=== PATIENT | female | born 1975 | race Caucasian/White ===

== ENCOUNTER → 2019-10-08 13:30 | Outpatient (CLI) | payer BC, SELFPAY ==
--- NOTE | ~2019-10-08 | MM_ITS ---
EXAMINATION: MM screening alia BI w jeffery HISTORY: Screening mammogram TECHNIQUE: Craniocaudal and mediolateral oblique 3-D tomosynthesis images were obtained and synthetic 2-D images were generated. CAD analysis was submitted and interpreted. COMPARISON: 09/29/2018, 09/06/2017, 04/05/2016 bilateral digital screening mammogram examinations BREAST PARENCHYMAL COMPOSITION: The breasts are heterogeneously dense, which may obscure small masses . FINDINGS: There are asymmetries in the left breast. Diagnostic left mammogram is recommended, with ul trasound if required. No suspicious mass, architectural distortion, malignant calcification, skin thickening or retraction or significant new or developing density is noted on the right.. IMPRESSION: 1. Left mammographic asymmetries 2. Diagnostic left mammogram is recommended, with ultrasound if required BI-RADS Category 0: Incomplete: Needs additional imaging evaluation. Reviewed, dictated and finalized at location A.
== END ==
PROVIDERS: PCP Internal Medicine; Visit Provider Obstetrics & Gynecology
DX: Z12.31 Encounter for screening mammogram for malignant neoplasm of breast (principal); R92.8 Other abnormal and inconclusive findings on diagnostic imaging of breast
CPT/HCPCS: 77063; 77067

== ENCOUNTER 2019-10-15 12:42 | Outpatient (CLI) | payer BC, SELFPAY ==
--- NOTE | ~2019-10-15 | MMUS_ITS ---
EXAMINATION: MM diagnostic mammo unilat LT, US breast LT complete HISTORY: Follow-up left breast asymmetries TECHNIQUE: Additional 3-D tomosynthesis images of the left breast were performed and synthetic 2-D im ages were generated. CAD analysis was submitted and interpreted. High resolution left breast ultrasou nd was performed. COMPARISON: 10/08/2019 FINDINGS: MAMMOGRAPHIC FINDINGS: The breasts are heterogenously dense, which may obscure small masses. Left breast asymmetries are les s dense with spot compression and mediolateral views of the left breast. No discrete mass or architec tural distortion is identified. ULTRASOUND: Left breast ultrasound: Normal heterogeneous echotexture without focal solid or cystic mass. IMPRESSION: 1. Probable benign focal asymmetries of the left breast. No sonographic correlate. 2. Recommend 6 month follow-up diagnostic left mammogram recommended BI-RADS category 3, probably benign findings. Reviewed, dictated and finalized at location A. IMPRESSION: 1. Probable benign focal asymmetries of the left breast. No sonographic correla te. 2. Recommend 6 month follow-up diagnostic left mammogram recommended BI-RADS category 3, probably benign findings.
== END 2019-10-15 12:43 | disposition home or self-care (01) ==
LOC: ANHIMG 12:46
PROVIDERS: PCP Internal Medicine; Visit Provider Obstetrics & Gynecology
DX: N64.89 Other specified disorders of breast (principal)
CPT/HCPCS: 76641; 77065

== ENCOUNTER 2020-04-17 11:33 | Outpatient (CLI) | payer BC, SELFPAY ==
--- NOTE | ~2020-04-17 | MM_ITS ---
EXAMINATION: MM diagnostic alia LT w jeffery HISTORY: Six-month follow-up TECHNIQUE: ML, MLO and cc full field and spot 3-D tomosynthesis images of the left breast were perfor med and synthetic 2-D images were generated. Rolled medial and rolled lateral craniocaudal views. CAD analysis was submitted and interpreted. COMPARISON: 10/08/2019 bilateral digital screening mammogram 10/15/2019 diagnostic left digital mammogram and left complete breast ultrasound BREAST PARENCHYMAL COMPOSITION: The breasts are heterogeneously dense, which may obscure small masses . FINDINGS: No interval suspicious mass, architectural distortion, malignant calcification, skin thicke janie or retraction or significant new or developing density of the left breast is evident. IMPRESSION: 1. No mammographic evidence of malignancy 2. Routine mammographic screening is recommended. BI-RADS Category 1: Negative Reviewed, dictated and finalized at location A.
== END 2020-04-17 11:34 | disposition home or self-care (01) ==
PROVIDERS: PCP Internal Medicine; Visit Provider Obstetrics & Gynecology
DX: N64.89 Other specified disorders of breast (principal)
CPT/HCPCS: 77061; 77065; G0279

== ENCOUNTER 2021-04-17 07:40 | Outpatient (CLI) | payer BC, SELFPAY ==
--- NOTE | ~2021-04-17 | MM_ITS ---
EXAMINATION: MM screening alia BI w jeffery HISTORY: Screening mammogram TECHNIQUE: Craniocaudal and mediolateral oblique 3-D tomosynthesis images were obtained and synthetic 2-D images were generated. Bilateral rotated lateral CC views. CAD analysis was submitted and interp reted. COMPARISON: 10/15/2019 diagnostic left mammogram and complete left breast ultrasound 10/08/2019, 09/29/2018, 09/06/2017, 04/05/2016 bilateral digital screening mammogram examinations BREAST PARENCHYMAL COMPOSITION: The breasts are heterogeneously dense, which may obscure small masses . FINDINGS: There is no evidence of suspicious mass, calcification, or architectural distortion to sugg est malignancy in either breast. There has been no suspicious interval change. IMPRESSION: 1. No mammographic evidence of malignancy. 2. Recommend routine screening mammography in one year. BI-RADS Category 1: Negative Reviewed, dictated and finalized at location A.
== END 2021-04-17 07:41 | disposition home or self-care (01) ==
LOC: ANHIMG 07:43
PROVIDERS: PCP Internal Medicine; Visit Provider Obstetrics & Gynecology
DX: Z12.31 Encounter for screening mammogram for malignant neoplasm of breast (principal)
CPT/HCPCS: 77063; 77067

== ENCOUNTER 2022-05-24 12:49 | Outpatient (CLI) | payer BC, SELFPAY ==
--- NOTE | ~2022-05-24 | MM_ITS ---
EXAMINATION: MM screening alia BI w jeffery HISTORY: Screening mammogram TECHNIQUE: Craniocaudal and mediolateral oblique 3-D tomosynthesis images were obtained and synthetic 2-D images were generated. Bilateral rotated lateral CC views. CAD analysis was submitted and interp reted. COMPARISON: 04/17/2021, 04/17/2020 bilateral screening mammogram examinations 10/15/2019 diagnostic left mammogram and complete left breast ultrasound 10/08/2019 bilateral screening mammogram BREAST PARENCHYMAL COMPOSITION: The breasts are heterogeneously dense, which may obscure small masses . FINDINGS: There is no evidence of suspicious mass, calcification, or architectural distortion to sugg est malignancy in either breast. There has been no suspicious interval change. IMPRESSION: 1. No mammographic evidence of malignancy. 2. Recommend routine screening mammography in one year. BI-RADS Category 1: Negative Reviewed, dictated and finalized at location A. REPAIRER
== END 2022-05-24 12:50 | disposition home or self-care (01) ==
PROVIDERS: PCP Internal Medicine; Visit Provider Internal Medicine
DX: Z12.31 Encounter for screening mammogram for malignant neoplasm of breast (principal)
CPT/HCPCS: 77063; 77067

== ENCOUNTER 2022-10-09 10:32 | Outpatient (CLI) | payer BC, SELFPAY ==
--- NOTE | ~2022-10-09 | US_ITS ---
EXAMINATION: US pelvic complete w TV DATE: 10/09/2022 11:00 INDICATION: Abnormal uterine bleeding. Pelvic pain. History of fibroids. Comparison:No prior studies for comparison. TECHNIQUE: Multiple transabdominal and endovaginal sonographic images of the pelvis performed. FINDINGS: The uterus measures 9.7 x 1.3 x 6.6 cm. The endometrial complex measures 0.5 cm. The right ovary is not visualized. Left ovary is unremarkable measuring 3.1 x 1.9 x 2.9 cm There is no free fluid in the pelvis. There are no abnormal masses seen on either side. IMPRESSION: 1. Endometrial thickening measuring 1.5 cm. Reviewed, dictated and finalized at location B.
== END 2022-10-09 10:33 ==
LOC: MICIMG 10:33
PROVIDERS: PCP Nurse Practitioner Family; Visit Provider Registered Nurse School
DX: N93.9 Abnormal uterine and vaginal bleeding, unspecified (principal); R10.2 Pelvic and perineal pain; R93.89 Abnormal findings on diagnostic imaging of other specified body structures
CPT/HCPCS: 76830; 76856

== ENCOUNTER 2023-05-26 11:40 | Outpatient (CLI) | payer BC, SELFPAY ==
--- NOTE | ~2023-05-26 | MM_ITS ---
EXAMINATION: MM screening alia BI w jeffery HISTORY: Screening mammogram TECHNIQUE: Craniocaudal and mediolateral oblique 3-D tomosynthesis images were obtained and synthetic 2-D images were generated. CAD analysis was submitted and interpreted. COMPARISON: 05/24/2022, 04/17/2021 bilateral screening mammogram examinations BREAST PARENCHYMAL COMPOSITION: The breasts are heterogeneously dense, which may obscure small masses . FINDINGS: Stable mild fibroglandular asymmetry. There is no evidence of suspicious mass, calcificatio n, or architectural distortion to suggest malignancy in either breast. There has been no suspicious i nterval change. IMPRESSION: 1. No mammographic evidence of malignancy. 2. Recommend routine screening mammography in one year. BI-RADS Category 2: Benign finding(s). Reviewed, dictated and finalized at location A. INE FEEDER FLOORPERSON
== END 2023-05-26 11:41 | disposition home or self-care (01) ==
LOC: CHSIMG 11:43
PROVIDERS: PCP Nurse Practitioner Family; Visit Provider Nurse Practitioner Family
DX: Z12.31 Encounter for screening mammogram for malignant neoplasm of breast (principal)
CPT/HCPCS: 77063; 77067

== ENCOUNTER 2024-06-01 12:11 | Outpatient (CLI) | payer OTHER, SELFPAY ==
--- NOTE | ~2024-06-01 | MM_ITS ---
EXAMINATION: MM screening alia BI w jeffery HISTORY: Screening TECHNIQUE: Craniocaudal and mediolateral oblique 3-D tomosynthesis images were obtained and synthetic 2-D images were generated. CAD analysis was submitted and interpreted. COMPARISON: No prior mammogram is available for comparison at this institution. BREAST PARENCHYMAL COMPOSITION: Dense: The breasts are heterogeneously dense, which may obscure small masses FINDINGS: There is a new mass in the lower inner quadrant of the right breast posterior third. There are developing nodular asymmetries in the upper inner quadrant of the left breast, middle-posterior d epth. There are no suspicious calcifications or architectural distortion. IMPRESSION: 1. New right breast mass. Developing left breast nodular asymmetries. 2. Additional mammographic views and possible breast ultrasound are recommended. BI-RADS Category 0: Incomplete: Needs additional imaging evaluation. Reviewed, dictated and finalized at location B. FACTURING ENGINEER AUTOMOTIVE IMPRESSION: 1. New right breast mass. Developing left breast nodular asymmetries. 2. Additional mammographic views and possible breast ultrasound are recommended . BI-RADS Category 0: Incomplete: Needs additional imaging evaluation.
== END 2024-06-01 12:12 | disposition home or self-care (01) ==
LOC: CHSIMG 12:14
PROVIDERS: PCP Nurse Practitioner Family; Visit Provider Obstetrics & Gynecology
DX: Z12.31 Encounter for screening mammogram for malignant neoplasm of breast (principal); R92.8 Other abnormal and inconclusive findings on diagnostic imaging of breast
CPT/HCPCS: 77063; 77067

== ENCOUNTER 2024-06-10 09:26 | Outpatient (CLI) | payer OTHER, SELFPAY ==
--- NOTE | ~2024-06-10 | MMUS_ITS ---
EXAMINATION: US breast RT limited, US breast LT complete, MM diagnostic alia BI w jeffery HISTORY: Follow-up right breast mass and left breast asymmetries. TECHNIQUE: Additional 3-D tomosynthesis images of the breasts were performed and synthetic 2-D images were generated. CAD analysis was submitted and interpreted. High resolution complete left and limite d right breast ultrasound was performed. COMPARISON: Comparison to multiple prior studies sequentially, with oldest reviewed study dated 10/07. BREAST PARENCHYMAL COMPOSITION: Dense: The breasts are heterogeneously dense, which may obscure small masses FINDINGS: MAMMOGRAPHIC FINDINGS: There is a focal mass in the lower inner quadrant of the right breast, posterior third. There is a sm all radiolucent mass in the upper outer quadrant of the left breast, posterior third. ULTRASOUND: Limited right breast ultrasound: At 4:00, 10 cm from the nipple there is a 4 mm cyst with adjacent hy poechoic structures which are ill-defined, possibly a benign cluster of microcysts. At 5:00, 5 cm fro m the nipple there is a 5 mm cyst. Complete left breast ultrasound including all 4 quadrants in the subareolar location: At 3:00, 5 cm f rom the nipple there is a 7 mm cyst. At 2:00, 5 cm from the nipple there is a 5 mm cyst. There is an adjacent 6 mm cyst. At 11:00, 5 cm from the nipple there is a septated 1.2 cm cyst. IMPRESSION: 1. Probable benign cluster of cystic and hypoechoic masses at 4:00, 10 cm from the nipple. Six-month follow-up diagnostic right mammogram and Limited right breast ultrasound recommended. No evidence for malignancy in the left breast. Benign findings. 2. Recommend 6 month follow-up diagnostic right mammogram and Limited right breast ultrasound. BI-RADS category 3, probably benign findings. Reviewed, dictated and finalized at location B. AL MEDIA CONTENT SPECIALIST IMPRESSION: 1. Probable benign cluster of cystic and hypoechoic masses at 4:00, 10 cm from the nipple. Six-month follow-up diagnostic right mammogram and Limited right br east ultrasound recommended. No evidence for malignancy in the left breast. Marino ign findings. 2. Recommend 6 month follow-up diagnostic right mammogram and Limited right kim ast ultrasound. BI-RADS category 3, probably benign findings. IMPRESSION: 1. Probable benign cluster of cystic and hypoechoic masses at 4:00, 10 cm from the nipple. Six-month follow-up diagnostic right mammogram and Limited right br east ultrasound recommended. No evidence for malignancy in the left breast. Marino ign findings. 2. Recommend 6 month follow-up diagnostic right mammogram and Limited right kim ast ultrasound. BI-RADS category 3, probably benign findings.
== END 2024-06-10 09:27 | disposition home or self-care (01) ==
LOC: CHSIMG 09:31
PROVIDERS: PCP Nurse Practitioner Family; Visit Provider Obstetrics & Gynecology
DX: R92.8 Other abnormal and inconclusive findings on diagnostic imaging of breast (principal)
CPT/HCPCS: 76641; 76642; 77062; 77066; G0279

== ENCOUNTER 2024-12-02 08:54 | Outpatient (CLI) | payer OTHER, SELFPAY ==
--- NOTE | ~2024-12-02 | MMUS_ITS ---
EXAMINATION: US breast RT limited, MM diagnostic alia RT w jeffery HISTORY: BI-RADS 3, short-term follow of probably benign cluster of cysts and hypoechoic masses at 4: 00 location in the right breast. TECHNIQUE: Additional 3-D tomosynthesis images of the right breast were performed and synthetic 2-D i mages were generated. CAD analysis was submitted and interpreted. High resolution limited right mart st ultrasound was performed. COMPARISON: 06/10/2024 and 06/01/2024. BREAST PARENCHYMAL COMPOSITION: Dense: The breasts are heterogeneously dense, which may obscure small masses FINDINGS: MAMMOGRAPHIC FINDINGS: Previously reported mass in the lower inner right breast is reidentified and unchanged. ULTRASOUND: Limited right breast ultrasound: At 4:00, 10 cm from the nipple circumscribed hypoechoic mass reident ified that measure 0.7 x 0.4 x 0.3 cm is unchanged. IMPRESSION: 1. Probable benign mass at 4:00, 10 cm from the nipple is unchanged. 2. Recommend 6 month follow-up diagnostic bilateral mammogram and Limited right breast ultrasound. BI-RADS category 3, probably benign findings. Reviewed, dictated and finalized at location [] IMPRESSION: 1. Probable benign mass at 4:00, 10 cm from the nipple is unchanged. 2. Recommend 6 month follow-up diagnostic bilateral mammogram and Limited right breast ultrasound. BI-RADS category 3, probably benign findings.
--- OUTSIDE RECORDS SUMMARY | 2024-12-02 09:25 | XMS_ITS | Clinical Summary ---
Author Organization [facility] Address [address] [place] [address] Care Team Providers Care Vendor Analyst Name Role Phone Unavailable Primary Care Provider Unavailabl e Source Comments [facility],non-owned Affiliates and Associated Physician Practices is amultiple site organization consisting of ambulatory clinics and hospital sitesin [place], [place], [place] and [place]. This disclosure is being madepursuant to the Care Everywhere program and may not contain all information available regarding this patient. Last updated 18.[facility] Allergies Active Allergy Reactions Criticality Noted Date Comments Sulfa Drugs Urticaria Medium 05/07/2016 Medications * Be aware that medications may not be up to date on this document. Alwaysverify current medications with the patient. Sertraline HCl (ZOLOFT PO) Active benzonatate (TESSALON) 200 MG capsule Take 1 capsule by mouth 3 times daily as needed for Cough 30 capsule 09/15/2017 Active fluticasone propionate (FLONASE) 50 MCG/ACT nasal spray [place]ck[place] 2 sprays into each nostril once daily 1 bottles 09/15/2017 Active Family History Medical History Relation Name Comments Cancer - Skin, Non Melanoma Father Breast Cancer after age 50 or unknown Mother Relation Name Status Comments Father Alive Mother Alive Social History Tobacco Use Types Packs/Day Years Used Date Smoking Tobacco: Never Smokeless Tobacco: Never Comments No Sex and Gender Information Value Date Recorded Sex Assigned at Not on file 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 Gender Identity Not on file Sexual Orientation Not on file Last Filed Vital Signs Vital Sign Reading Time Taken Comments Blood Pressure 120/78 09/15/2017 9:27 AM CDT Pulse 78 09/15/2017 9:27 AM CDT Temperature 37.1 C (98.7 F) 09/15/2017 9:27 AM CDT Respiratory Rate 16 09/15/2017 9:27 AM CDT Oxygen Saturation 98% 09/15/2017 9:27 AM CDT Inhaled Oxygen Concentration - - Weight 86.6 kg (191 lb) 09/15/2017 9:27 AM CDT Height 167.6 cm (5' 6) 09/15/2017 9:27 AM CDT Body Mass Index 30.83 09/15/2017 9:27 AM CDT Plan of Treatment Health Maintenance Due Date Last Done Comments COLOGUARD (AGES 45-75) - COL ON CA SCREENING 1975 COLON MONITORING 1975 COLONOSCOPY - COLON CA SCREENING 1975 CT COLONOGRAPHY - COLON CA SCREENING 1975 Colorectal Cancer Screening 1975 FIT - COLON CA SCREENING 1975 FLEX SIG - COLON CA SCREENING 1975 LIPID TESTING 1975 MAMMOGRAM 1975 HIV SCREENING 12/19/1990 HEPATITIS C SCREENING 12/15/1993 DTAP/TDAP/TD VACCINES (1 - Tdap) 12/19/1994 HEPATITIS B VACCINE (1 of 3 - 19+ 3-dose series) 12/19/1994 SCREENING FOR DIABETES 05/08/2017 COVID-19 VACCINE (1 - 2023-2 5 season) 2024 DEPRESSION SCREENING 06/30/2024 INFLUENZA VACCINE (Season Ended) 2025 ZOSTER VACCINE (1 of 2) 12/19/2025 HIB VACCINE Aged Out No longer eligi ble based on patient's age to complete this topic HPV VACCINE Aged Out No longer eligi ble based on patient's age to complete this topic MENINGOCOCCAL (Group B) VACC INE SHARED DECISION-MAKING Aged Out No longer eligibl e based on patient's age to complete this topic MENINGOCOCCAL GROUPS A/C/Y/W VACCINE Aged Out No longer eligible b ased on patient's age to complete this topic PNEUMOCOCCAL VACCINE Aged Out No long er eligible based on patient's age to complete this topic Insurance [facility] Address: [facility] [id number] [place] [address] ANTH
--- OUTSIDE RECORDS SUMMARY | 2024-12-02 09:25 | XMS_ITS | Encounter Summary ---
Author Organization [facility] Address [address] [place] [address] Care Team Providers Care Merchandising Stock Associate Name Role Phone Unavailable Primary Care Provider Unavailabl e Encounter Details Date Type Department Care Team (Late st Contact Info) Description 11/30/2024 External Device Data [facility] ABSTRACTION Provider, Abstract NO ADDRESS ON FILE Social History Tobacco Use Types Packs/Day Years Used Date Smoking Tobacco: Never Smokeless Tobacco: Never Alcohol Use Standard Drinks/Week Comments Yes 0 (1 standard drink = 0.6 oz pur e alcohol) very rarely Feeling Safe Answer Date Recorded Are you in a relationship wi th someone who hurts you emotionally and/or physically? 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
--- OUTSIDE RECORDS SUMMARY | 2024-12-02 09:25 | XMS_ITS | Clinical Summary ---
Author Organization [facility] Address [address] [address] [place] [address] Phone Care Team Providers Care Finish Cleaner Name Role Phone Unavailable Primary Care Provider Unavailabl e Allergies Active Allergy Reactions Criticality Noted Date Comments Cefdinir Hives High 08/25/2024 Sulfa (Sulfonamide Antibiotics) Hives High 08/01 Medications sertraline HCl (SERTRALINE ORAL) Take 150 mg by mouth daily at bedtime. Active hydrOXYzine HCL (ATARAX) 25 mg tablet Take 25 mg by mouth 3 times daily as needed for Itching. Active oxyCODONE (ROXICODONE) 5 mg/5 mL solutionIndication s:Other complications of gastric band procedure Take 5 mL (5 mg) by mouth every 4 hours as needed for break-through pain. Max Daily Amount: 30 mg 210 mL Active ondansetron (ZOFRAN ODT) 4 mg Tablet, Rapid Dissolve Take 1 Tablet (4 mg) by mouth every 6 hours as needed for Nausea/Vomiti ng. Dissolve tablet on top of tongue, then swallow with saliva. 28 Tablet 09/02/2024 11:39 AM HUMAN RESOURCES FILE CLERK Active pantoprazole (PROTONIX) 40 mg Tablet, Delayed Release (E.C.) Take 1 Tablet (40 mg) by mouth daily at bedtime. 30 Tablet 09/02/2024 11:39 AM HUMAN RESOURCES FILE CLERK 5 Active Active Problems Problem Noted Date Diagnosed Date Gastroesophageal reflux disease without esophagi tis 09/01/2024 Annual visit for general pita lt medical examination without abnormal findings 09/01/2024 Encounters Date Type Department Care Team Description 11/30/2024 External Device Data [facility]STRACTION Provider, Abstract 11/18/2024 External Device Data [facility] Provider, Abstract 11/17/2024 External Device Data [facility] Provider, Abstract 11/16/2024 External Device Data [facility] Provider, Abstract 10/12/2024 External Device Data [facility] Provider, Abstract 09/15/2024 External Device Data [facility] Provider, Abstract 09/07/2024 External Device Data [facility] Provider, Abstract 09/07/2024 External Device Data [facility]STRACTION Provider, Abstract 09/06/2024 External Device Data [facility] Provider, Abstract 09/04/2024 External Device Data [facility] Provider, Abstract 09/03/2024 External Device Data [facility]STRACTION Provider, Abstract 09/01/2024 9:24 AM HUMAN RESOURCES FILE CLERK Anesthesia Event [facility] Operating Room [address] [address] [place] [address] Mauricio Lowery MD 09/01/2024 9:00 AM HUMAN RESOURCES FILE CLERK - 09/01/2024 10:00 AM [facility] Surgery [facility] Operating Room [address] [facility] [address] [place] [address] Ninoska Mcqueen MD GASTRIC RESTRICTIVE DEVICE AND PORT REMOVAL WITH INTRAOPERATIVE Esophagogastroduodenoscopy 09/01/2024 6:54 AM HUMAN RESOURCES FILE CLERK - 09/02/2024 12:14 PM HUMAN RESOURCES FILE CLERK Hospital Encounter [facility] Surgical 1 [address] [address] [place] [address] Ninoska Mcqueen MD Gastroesophageal reflux disease without esophagitis Discharge Disposition: Home or Self Care from Last 3 Months Social History Tobacco Use Types Packs/Day Years [...] on file Legal Sex Female 10:14 AM HUMAN RESOURCES FILE CLERK Gender Identity Not on file Sexual Orientation Not on file Last Filed Vital Signs Vital Sign Reading Time Taken Comments Blood Pressure 120/60 09/02/2024 11:04 AM HUMAN RESOURCES FILE CLERK Pulse 87 09/02/2024 11:04 AM HUMAN RESOURCES FILE CLERK Temperature 37.2 C (98.9 F) 09/02/2024 11:04 AM HUMAN RESOURCES FILE CLERK Respiratory Rate 16 09/02/2024 11:04 AM HUMAN RESOURCES FILE CLERK Oxygen Saturation 100% 09/02/2024 11:04 AM HUMAN RESOURCES FILE CLERK Inhaled Oxygen Concentration - - Weight 73 kg (161 lb) 09/01/2024 7:45 AM HUMAN RESOURCES FILE CLERK Height 167.6 cm (5' 6) 08/25/2024 12:11 PM HUMAN RESOURCES FILE CLERK Body Mass Index 25.99 08/25/2024 12:11 PM HUMAN RESOURCES FILE CLERK Plan of Treatment Health Maintenance Due Date Last Done Comments Pre-Diabetes and Diabetes Screening 1975 HEPATITIS B VACCINES (1 of 3 - 19+ 3-dose series) 12/19/1994 HPV/Cotest (21-29) 12/19/1996 CERVICAL CANCER SCREENING 12/19/2005 HPV/Cotest (30-65) 12/19/2005 PAP SMEAR 12/19/2005 BREAST CANCER SCREENING 2015 FIT-DNA Q 3 years 12/19/2020 FIT/FOBT Q 1 year 12/19/2020 Flex Sig/CT Colonography Q 5 years 12/19/2020 COVID-19 Vaccine (2023-2 5 season) 2024 01/11/2022, 11/01/2020, 10/04/2020 DTAP/TDAP/TD VACCINES (2 - T d or Tdap) 12/30/2027 12/29/2017 COLORECTAL SCREENING 08/12/2034 08/12/2024, 08/12/19 25 Colorectal Cancer Screening 08/12/2034 INFLUENZA VACCINE Completed 03/30/2024, , 03/01/2020, Additional history exists Medical Devices Implanted Type Area Surgery Attendant Device Identifier Shelf Expiration Date Model / Serial / Lot Seamguard Endopath 60 [id number] - [id number] Implanted:Qt y: 1 on 09/01/2024 by Ninoska Mcqueen MD at [facility] Biological N/A: Abdomen [employer] [id number] 04/27/2027 [id number] / / [id number] Procedures Procedure Name Priority Date/Time Associated Diagnosis Comments BASIC METABOLIC PANEL Routine 09/02/2024 6:04 AM HUMAN RESOURCES FILE CLERK CBC WITH DIFFERENTIAL Routine 09/02/2024 6:04 AM HUMAN RESOURCES FILE CLERK PATHOLOGY Pathology 09/01/2024 11:11 AM HUMAN RESOURCES FILE CLERK Other complications of gastric band procedure AR ANES INSERT ENDOTRACHEAL AIRWAY Routine 09/01/2024 9:29 AM HUMAN RESOURCES FILE CLERK AR LAPS GASTRIC RESTRICTIVE PX REMOVE DEVICE & PORT 09/01/2024 9:00 AM HUMAN RESOURCES FILE CLERK Other complications of gastric band procedure Case Notes CODE 18 2-26-25rf HCG QUALITATIVE, SERUM Routine 09/01/2024 8:17 AM HUMAN RESOURCES FILE CLERK from Last 3 Months Results * (ABNORMAL) CBC WITH DIFFERENTIAL (09/02/2024 6:04 AM HUMAN RESOURCES FILE CLERK) WBC 14.0(H) 4.0 - 11.0 K/uL 09/02/2024 6:[address] [facility] RBC 4.21 4.20 - 5.40 M/uL 09/02/2024 6:[address] [facility] [place] HEMOGLOBIN 11.5(L) 11.9 - 15.1 g/dL 09/02/2024 6:[address] [facility] HEMATOCRIT 36.3(L) 38.0 - 47.0 % 09/02/2024 6:[address] [facility] MCV 86.2 80.0 - 98.0 fL 09/02/2024 6:[address] [facility] MCH 27.3 26.0 - 34.0 pg 09/02/2024 6:[address] [facility] MCHC 31.7 31.0 - 37.0 g/dL 09/02/2024 6:35 AM HUMAN RESOURCES FILE CLERK [facility] [place] RDW 14.1 11.5 - 14.5 % 09/02/2024 6:35 AM HUMAN RESOURCES FILE CLERK [facility] [place] RDW-STDEV 43.6 34.0 - 54.0 fL 09/02/2024 6:35 AM HUMAN RESOURCES FILE CLERK [facility] PLATELETS 182 150 - 400 K/uL 09/02/2024 6:35 AM HUMAN RESOURCES FILE CLERK [facility] [place] MPV 11.7 8.5 - 12.5 fL 09/02/2024 6:35 AM HUMAN RESOURCES FILE CLERK [facility] [place] NEUTROPHILS 83(H) 50 - 70 % 09/02/2024 6:35 AM HUMAN RESOURCES FILE CLERK [facility] [place] LYMPHOCYTES 8(L) 20 - 40 % 09/02/2024 6:35 AM [facility] [place] MONOCYTES 8 2 - 8 % 09/02/2024 6:35 AM [facility] [place] EOSINOPHILS 0(L) 1 - 3 % 09/02/2024 6:35 AM HUMAN RESOURCES FILE CLERK [facility] [place] BASOPHILS 0 0 - 1 % 09/02/2024 6:35 AM HUMAN RESOURCES FILE CLERK [facility] [place] IMMATURE GRANULOCYTES 0 0 - 2 % 09/02/2024 6:35 AM HUMAN RESOURCES FILE CLERK [facility] [place] NEUTROPHIL ABSOLUTE 11.60(H) 1.80 - 7.70 K/uL 09/02/2024 6:35 AM [facility] [place] LYMPHOCYTE ABSOLUTE 1.15 1.00 - 3.30 K/uL 09/02/2024 6:35 AM HUMAN RESOURCES FILE CLERK [facility] [place] MONOCYTE ABSOLUTE 1.12(H) 0.00 - 0.80 K/uL 09/02/2024 6:35 AM HUMAN RESOURCES FILE CLERK [facility] [place] EOSINOPHIL ABSOLUTE 0.04 0.00 - 0.45 K/uL 09/02/2024 6:35 AM HUMAN RESOURCES FILE CLERK [facility] [place] BASOPHILS ABSOLUTE 0.04 0.00 - 0.20 K/uL 09/02/2024 6:35 AM HUMAN RESOURCES FILE CLERK [facility] [place] IMMATURE GRANULOCYTES ABSOLUTE 0.04 0.00 - 0.31 K/uL 09/02/2024 6:35 AM HUMAN RESOURCES FILE CLERK [facility] [place] Blood Venipuncture / Unknown 09/02/2024 6:04 AM HUMAN RESOURCES FILE CLERK 09/02/2024 6:30 AM HUMAN RESOURCES FILE CLERK Ninoska Mcqueen MD HEMATOLOGY ORDERABLES Selam shirley Result [facility] [place] CLIA # [id number] [address] [place] [address] * (ABNORMAL) BASIC METABOLIC PANEL (09/02/2024 6:04 AM HUMAN RESOURCES FILE CLERK) Pathologist [facility] SODIUM 141 136 - 145 mmol/L 09/02/2024 6:[address] [facility] [employer] [facility] POTASSIUM 3.7 3.5 - 5.1 mmol/L 09/02/2024 6:59 AM [facility] CHLORIDE 104 98 - 107 mmol/L 09/02/2024 6:59 AM [facility] CO2 23 22 - 29 mmol/L 09/02/2024 6:59 AM [facility] CALCIUM 8.5(L) 8.6 - 10.0 mg/dL 09/02/2024 6:59 AM [facility] BUN 4(L) 6 - 20 mg/dL 09/02/2024 6:59 AM [facility] CREATININE 0.74 0.51 - 0.95 mg/dL 09/02/2024 6:59 AM [facility] GLUCOSE 94 74 - 99 mg/dL 09/02/2024 6:59 AM [facility] GFR >60 >=60 mL/min/1.7 3 sq meter 09/02/2024 6:[address] [facility] Comment:eGFR calculated with 2020 CKD-EPI equation. Vegetarian diet, extremely high or low muscle mass, and may affect results. Cystatin C with Glomerular Filtration Rate is a suitable alternative for these patients. ANION GAP 14 5 - 15 mmol/L 09/02/2024 6:[address] [facility] Blood Venipuncture / Unknown 09/02/2024 6:04 AM HUMAN RESOURCES FILE CLERK 09/02/2024 6:39 AM HUMAN RESOURCES FILE CLERK us Ninoska Mcqueen MD CHEMISTRY ORDERABLES Final Result [facility] CLIA # [id number] [address] [place] [address] * PATHOLOGY (09/01/2024 11:11 AM HUMAN RESOURCES FILE CLERK) CASE REPORT Surgical Pathology Report Case: [id number] Authorizing Provider: Ninoska Mcqueen MD Collected: 09/01/2024 11:11 AM Ordering Location: [facility] Received: 09/02/2024 11:07 AM Operating Room Pathologist: Eris Eugene MD Specimen: Stomach 09/06/2024 3:49 PM CDT [facility] FINAL DIAGNOSIS Gastric, partial resection -Gastric wall and fibrofatty adhesions with focal mixed inflammatory cells -See description 09/06/2024 3:49 PM T [facility] at 1549 CDT GROSS DESCRIPTION Received in formalin in a container labeled McVicar, Kim & stomach . The container holds a portion of stomach, with staple line, measuring 3.5 x 2.2 x 1.6 cm. The serosal surface is pink-tipton with a few adhesions. There is a small amount of attached adipose tissue. The staple line is inked black and shaved. Sections reveal a pink-tipton cut surface. Entirely submitted in cassettes A1 through A3. DYT 09/06/2024 3:49 PM T [facility] MICROSCOPIC DESCRIPTION Sections from the stomach specimen show presumed gastric wall though no definitive intact mucosa is identified. Some artifactual changes are present, fibrofatty adhesions and focal areas of mixed inflammatory cells are seen. Clinical correlation and continued follow-up are recommended. The case was discussed with Dr. Mcqueen on 09/06/2024. 09/06/2024 3:49 PM CDT [facility] OPERATIVE PROCEDURE 1: GASTRIC RESTRICTIVE DEVICE AND PORT REMOVAL 09/06/2024 3:49 PM [facility] CLINICAL INFORMATION Other complications of gastric band procedure [K95.09] K95.09-Other complications of gastric band procedure 09/06/2024 3:49 PM [facility] Tissue ENTIRE STOMACH / Unknown Collection / Unknown 09/01/2024 11:11 AM HUMAN RESOURCES FILE CLERK 09/02/2024 11:07 AM HUMAN RESOURCES FILE CLERK Ninoska Mcqueen MD PATHOLOGY/CYTOLOGY ORDERAB LES Final Result [facility] CLIA # [id number] [facility] [address] [place] [address] * AR ANES INSERT ENDOTRACHEAL AIRWAY (09/01/2024 9:29 AM HUMAN RESOURCES FILE CLERK) Narrative Millie Stafford CRNA - 09/01/2024 9:29 AM HUMAN RESOURCES FILE CLERK Millie Stafford CRNA 09/01/2024 9:45 AM Airway Date/Time: 09/01/2024 9:29 AM Location: OR Plan: routine intubation Patient Identity Confirmed by: Verbally with patient and armband Airway: not difficult Staffing Performed: VACCINATOR/CAA Authorized by: Mauricio Lowery MD Performed by: Millie Stafford CRNA Indications and Patient Condition: Indications for Airway Management: Anesthesia Sedation Level: general anesthesia Preoxygenated: yes Patient Position: Sniffing Mask Difficulty Assessment: 1 - vent by mask Plan to extubate at end of case: Yes Final Airway Details: Final Airway Type: Endotracheal airway ETT Cuffed: Yes Cuff Volume (mL): 7 Technique Used for Successful ETT Placement: Direct laryngoscopy Blade Type: curved blade Blade Size: 3 Insertion Site: Oral ETT Size (mm): 7.5 Measured from: Teeth ETT to Teeth (cm): 21 Tube secured with: Tape Placement Verified by: auscultation, end tidal CO2 and chest rise Cormack-Lehane Classification: Grade I - full view of glottis Number of Attempts at Approach: 1 Additional Procedure Information: atraumatic and dentition unchanged Mauricio Lowery MD PROCEDURE/MINOR SURGICAL ORDER YOLANDA Final Result * HCG QUALITATIVE, BLOOD (09/01/2024 8:17 AM HUMAN RESOURCES FILE CLERK) HCG QUAL, BLOOD Negative Negative 09/01/2024 8:37 AM HUMAN RESOURCES FILE CLERK [facility] Blood Venipuncture / Unknown 09/01/2024 8:17 AM HUMAN RESOURCES FILE CLERK 09/01/2024 8:18 AM HUMAN RESOURCES FILE CLERK Narrative [facility] - 09/01/2024 8:37 AM HUMAN RESOURCES FILE CLERK hCG sensitive to as little as 10 mIU/mL for serum. us Mauricio Lowery MD CHEMISTRY ORDERABLES Final Res ult [facility] CLIA # [id number] [facility] [address] [place] [id number] from Last 3 Months Advance Directives For more information, please contact: [phone] * Full Code (Latest Code Status on File) Date Activated Date Inactivated Comments 09/01/2024 1:28 PM 09/02/2024 2:14 PM * Full Code Date Activated Date Inactivated Comments 09/01/2024 10:21 AM 09/01/2024 1:28 PM * Full Code Date Activated Date Inactivated Comments 09/01/2024 7:19 AM 09/01/2024 10:21 AM
== END 2024-12-02 08:55 | disposition home or self-care (01) ==
LOC: CHSIMG 08:57
PROVIDERS: PCP Nurse Practitioner Family; Visit Provider Obstetrics & Gynecology
DX: N63.11 Unspecified lump in the right breast, upper outer quadrant (principal)
CPT/HCPCS: 76642; 77061; 77065; G0279